=== PATIENT | male | born 1940 | race Caucasian/White ===

== ENCOUNTER 2022-05-17 19:21 | Emergency (ER) | payer MEDICARE, OTHER, SELFPAY ==
--- NOTE | 2022-05-17 19:28 | ED.URI ---
HPI - URI/Sore Throat General Chief Complaint: Upper Respiratory Infection Stated Complaint: Sore Throat Time Seen by Provider: 05/17/22 19:28 Source: patient and RN notes reviewed History of Present Illness HPI Narrative: Patient is an 81-year-old male who presents the urgent care with his spouse with complaints of a sore throat since his intubation on . Patient was under the impression it was due to the intubation tube however it is worsened over the last 24 hours. Denies of any fever, nausea or vomiting. Patient is done nothing [id number] for his symptoms. Denies of any ill exposures. No other acute complaints. No acute distress noted. Patient and spouse aware of the plan of care. Some parts of this dictation were generated by voice recognition software and may contain typographical and/or grammatical inaccuracies. Related Data Home Medications Medication Instructions Recorded Confirmed acetaminophen 300 mg-codeine 30 mg tablet 05/17/22 tablet duloxetine 30 mg capsule,delayed mg PO 05/17/22 release dutasteride 0.5 mg capsule mg PO 05/17/22 hydroxychloroquine 200 mg tablet mg PO 05/17/22 lisinopril 20 mg tablet mg 05/17/22 oxybutynin chloride 5 mg tablet mg 05/17/22 pilocarpine HCl 5 mg tablet mg 05/17/22 warfarin 5 mg tablet mg 05/17/22 Allergies Allergy/AdvReac Type Severity Reaction Status Date / Time NSAIDS (Non-Steroidal AdvReac Other Verified 05/17/22 19:43 Anti-Inflamma Review of Systems Review of Systems: CONSTITUTIONAL: Denies fever, chills, or sweats. EYES: Denies visual changes, redness, or discharge. ENT: Denies rhinorrhea, congestion, otalgia. Reports of sore throat CARDIOVASCULAR: Denies chest pain, palpitations, or edema. RESPIRATORY: Denies cough or dyspnea. GASTROINTESTINAL: Denies abdominal pain, nausea, vomiting, or diarrhea. GENITOURINARY: Denies dysuria or hematuria. SKIN: Denies rash or itching. MUSCULOSKELETAL: Denies back pain, joint pain, or myalgia. NEUROLOGIC: Denies headache, numbness, or weakness. All other systems reviewed are negative, except as documented in HPI. PMFSH Comments At the time of my signature, I reviewed and agree with the nursing past medical, surgical, social, and family history. There is no relevant family history pertinent to the patient complaint. Exam Narrative: GENERAL: This is a well-nourished, well-developed patient, in no apparent distress. HEAD: normocephalic, atraumatic. EYES: PERRL. Sclera clear/white. Vision is grossly intact. EARS: External ears normal NOSE: External nose normal with no obvious nasal discharge, nares without redness, no rhinorrhea. THROAT: Mucous membranes moist. Copious white to yellow thick oral candidiasis noted to the surface of the tongue with moderate erythema noted posterior pharynx without exudate or ulceration. Mild postnasal drainage NECK: Neck supple CARDIOVASCULAR: Regular rate and rhythm RESPIRATORY: Clear to auscultation. Breath sounds equal bilaterally. No wheezes, rales, or rhonchi. GASTROINTESTINAL: Abdomen soft, non-tender, nondistended. Bowel sounds are active. No hepato-splenomegaly, or palpable masses. No guarding. SKIN: warm, intact with no suspicious lesions or rash, good texture and turgor. NEURO: awake, alert, and oriented to person, place and time. There were no obvious focal neurologic abnormalities. EXTREMITIES: No clubbing, cyanosis, or edema. Course Course Level of Care: Express Care Visit Vital Signs Vital signs: Vital Signs Temperature 98.3 F 05/17/22 19:35 Pulse Rate 05/17/22 19:35 Respiratory Rate 05/17/22 19:35 Blood Pressure 128/69 05/17/22 19:35 Pulse Oximetry 100 05/17/22 19:35 Oxygen Delivery Room Air 05/17/22 19:35 Temperature 98.3 F 05/17/22 19:35 Pulse Rate 05/17/22 19:35 Respiratory Rate 05/17/22 19:35 Blood Pressure 128/69 05/17/22 19:35 Pulse Oximetry 100 05/17/22 19:35 Oxygen Delivery Room
[2022-05-17 19:35] VITALS: BP 128/69; PULSE 69; RESP 20; TEMP 36.8; O2SAT 100
== END 2022-05-17 20:03 | disposition home or self-care (01) ==
PROVIDERS: Emergency Provider Nurse Practitioner Family; PCP Internal Medicine
DX: B37.0 Candidal stomatitis (principal); I10 Essential (primary) hypertension; N40.0 Benign prostatic hyperplasia without lower urinary tract symptoms
CPT/HCPCS: 87081; 87880; 99213; G0463